=== PATIENT | female | born 1995 | race African-American/Black ===

== ENCOUNTER 2016-11-01 17:09 | Emergency (ER) | payer OTHER ==
[~2016-11-01] VITALS: Ht 170.2 cm; Wt 65.0 kg
[2016-11-01 17:12] VITALS: BP 176/94; PULSE 86; RESP 16; TEMP 98.1; O2SAT 97
[2016-11-01] MEDS ORDERED: TRI-TAB PO (17:27)
--- NOTE | 2016-11-01 17:28 | PD ---
HPI Chief Complaint: Complaint Time Seen by Provider: 17:20 Travel History International Travel<30 days: No Contact w/Intl Traveler<30days: No Traveled to known affect area: No History of Present Illness HPI This patient was examined in the presence of a female nurse at all times. 21- year-old female presents for evaluation of dysuria. Symptom onset today. She reports a burning sensation when she urinates, some urinary hesitancy. She endorses dark colored urine. Denies flank pain, vaginal bleeding or discharge, nausea or vomiting, fevers or chills. She's never had this problem before. No significant past medical history. Last menstrual period 2 weeks ago. No other complaints. PFSH Past Medical History Medical History: Denies Significant Hx ?: Not LMP: 10/18/16 Past Surgical History Surgical History: No Previous Surgery Social History Alcohol Use: Yes (occ) Tobacco Use: No Substance Use: No Allergies-Medications (Allergen,Severity, Reaction): Coded Allergies: Penicillin (Verified Allergy, Severe, 11/01/16) Reported Meds & Prescriptions Reported Meds & Active Scripts Active Pyridium (Phenazopyridine HCl) 200 Mg Tab 200 Mg PO Q8HR 3 Days Bactrim DS (Sulfamethoxazole-Trimethoprim) 800-160 Mg Tab 1 Tab PO BID Reported Tri-Sprintec (Norgestimate-Ethinyl Estradiol) 0.18/0.215/0.25 Mg-35 Mcg Tab 1 Tab PO DAILY Review of Systems Except as stated in HPI: all other systems reviewed are Neg Physical Exam Narrative GENERAL: Well-developed well-nourished female in no acute distress resting comfortably on hospital bed. SKIN: Warm and dry. HEAD: Atraumatic. Normocephalic. EYES: Pupils equal and round. No scleral icterus. No injection or drainage. ENT: No nasal bleeding or discharge. Mucous membranes pink and moist. NECK: Trachea midline. No JVD. CARDIOVASCULAR: Regular rate and rhythm. No murmur appreciated. RESPIRATORY: No accessory muscle use. Clear to auscultation. Breath sounds equal bilaterally. GASTROINTESTINAL: Abdomen soft, non-tender, nondistended. Hepatic and splenic margins not palpable. No CVA tenderness. MUSCULOSKELETAL: No obvious deformities. No edema. NEUROLOGICAL: Awake and alert. No obvious cranial nerve deficits. Motor grossly within normal limits. Normal speech. PSYCHIATRIC: Appropriate mood and affect; insight and judgment normal. Data Data Last Documented VS Vital Signs Date Time Temp Pulse Resp B/P Pulse Ox O2 Delivery O2 Flow Rate FiO2 11/01/16 17:12 98.1 86 16 176/94 97 Room Air Orders Urinalysis - C+S If Indicated (11/01/16 17:21) Ed Urine Pregnancytest Poc (11/01/16 17:21) Urine Culture (11/01/16 17:28) Labs Laboratory Tests Test 11/01/16 17:28 Urine Color BROWN Urine Turbidity CLOUDY Urine pH 5.5 Urine Specific [place] 1.020 Urine Protein 100 mg/dL Urine Glucose (UA) NEG mg/dL Urine Ketones 10 mg/dL Urine Occult Blood LARGE Urine Nitrite POS Urine Bilirubin NEG Urine Urobilinogen LESS THAN 2.0 MG/DL Urine Leukocyte Esterase LARGE Urine RBC /hpf Urine WBC /hpf Urine WBC Clumps MANY Urine Squamous Epithelial 2 /hpf Cells Urine Bacteria FEW /hpf Urine Mucus FEW /lpf Urine Yeast (Budding) MANY Microscopic Urinalysis Comment CULTURE INDICATED MDM Medical Decision Making Medical Screen Exam Complete: Yes Emergency Medical Condition: Yes Medical Record Reviewed: Yes Interpretation(s) Negative urine test Urinalysis positive nitrites, large leukocytes, large blood, culture pending Differential Diagnosis Cystitis, urethritis, pyelonephritis Narrative Course 21-year-old female with 1 day of dysuria. Urinalysis is consistent with cystitis. She is being discharged with Pyridium and Bactrim. Diagnosis Primary Impression: Urinary tract infection Qualified Code: N30.01 - Acute cystitis with hematuria Additional Instructions: Medication as prescribed. Stay well hydrated and well-nourished. Follow-up closely with primary care physician. Return for new or worsening symptoms. Med/Other Pt SpecificInfo: Prescription(s) given Scripts Phenazopyridine (Pyridium)200 Mg [id number] Mg PO Q8HR 3 Days Ref 0 Prov:Jordyn Love MD 11/01/16 Sulfamethoxazole-Trimethoprim (Bactrim DS)800-160 Mg Tab1 Tab PO BID #14 TAB Ref 0 Prov:Jordyn Love MD 11/01/16 Disposition: 01 DISCHARGE HOME Condition: Stable Zafar Nagy Nov 01, 2016 17:28
[2016-11-01 17:42] LABS: BLOOD, URINE LARGE (NEG); COMMENT (UR) CULTURE INDICATED; CULTURE IF INDICATED CULTURE INDICATED; GLUCOSE,URINE NEG (NEG); KETONE, URINE 10 mg/dL (NEG); MUCUS URINE FEW /lpf (OCC); PH, URINE 5.5 (5.0-8.5); SQUAMOUS EPITHELIAL CELL URINE 2 /hpf (0-5)
[2016-11-01 17:43] LABS: NITRITE,URINE POS (NEG); URINE COLOR BROWN (YELLW/STRAW)
--- NOTE | 2016-11-01 17:43 | PD ---
Physical Exam Date Seen by Provider: Nov 01, 2016 Narrative I, Dr. Love, have reviewed the advance practice practitioner's documentation and am in agreement, met with the patient face to face, made the diagnosis, and the medical decision making was done by me. *My assessment and Findings: Patient presents with urinary symptoms. She is lying on the stretcher smiling using her cell phone in no distress. Data Data Last Documented VS Vital Signs Date Time Temp Pulse Resp B/P Pulse Ox O2 Delivery O2 Flow Rate FiO2 11/01/16 17:12 98.1 86 16 176/94 97 Room Air Orders Urinalysis - C+S If Indicated (11/01/16 17:21) Ed Urine Pregnancytest Poc (11/01/16 17:21) MDM Supervised Visit with SWETHA: Yes Jordyn Love MD Nov 01, 2016 17:43
[2016-11-01 17:44] LABS: BACTERIA, URINE FEW /hpf
[2016-11-01] MEDS ORDERED: PYRI200T4 PO (17:51)
[2016-11-01] MEDS ORDERED: BACT800T5 PO (17:51)
== END 2016-11-01 18:10 | disposition home or self-care (01) ==
LOC: NEPE 17:09
DX: N30.01 Acute cystitis with hematuria (principal); B96.20 Unspecified Escherichia coli [E. coli] as the cause of diseases classified elsewhere
CPT/HCPCS: 81001; 84703; 87077; 87086; 87186; 99283